=== PATIENT | male | born 1970 | race Caucasian/White ===

== ENCOUNTER → 2019-05-17 08:59 | Outpatient (CLI) | payer OTHER, SELFPAY ==
[2019-05-17 09:06] LABS: Bacteria Urine None Seen; RBC Urine None Seen (0-5/HPF); WBC Urine None Seen (0-5/HPF)
[2019-05-17 10:17] LABS: Hematocrit 45.4 % (41-53); Hemoglobin 15.6 g/dL (13.5-17.5); Mean Corpuscular HGB Conc 34.3 % (30-36); Mean Corpuscular Hemoglobin 30.9 PG (26-34); Mean Corpuscular Volume 90.2 fL (80-100); Platelet Count 170 X10^3/uL (150-400); Red Blood Cell Count 5.04 X10^6/uL (4.5-5.9); Red Cell Distribution Width 13.2 % (11.6-14.8); White Blood Cell Count 4.3 X10^3/uL (4.5-11.0)
[2019-05-17 10:22] LABS: Alanine Aminotransferase 18 IU/L (21-72); Albumin 4.6 g/dL (3.5-5.0); Albumin Globulin Ratio 1.7 (1.0-2.8); Alkaline Phosphatase 60 U/L (38-126); Aspartate Aminotransferase 41 IU/L (17-59); Bilirubin Total 0.9 mg/dL (0.2-1.3); Blood Urea Nitrogen 17 mg/dL (9-20); Calcium 9.7 mg/dL (8.4-10.2); Carbon Dioxide 27 mmol/L (22-32); Chloride 104 mmol/L (98-107); Cholesterol 221 mg/dL (140-199); Estimated Glomerular Filt Rate > 60.0 mL/min (>60); Globulin 2.7 g/dL (1.7-4.1); Glucose 91 mg/dL (70-100); HDL Cholesterol 54 mg/dL (40-60); HEMOLYSIS < 15 (0-50); LDL Cholesterol Calculated 155 mg/dL (<100); Potassium 4.2 mmol/L (3.4-5.1); Sodium 141 mmol/L (137-145); Total Protein 7.3 g/dL (6.3-8.2); Triglycerides 58 mg/dL (35-150)
[2019-05-17 11:27] LABS: Appearance Urine UA CLEAR; Bilirubin Urine UA NEGATIVE (NEGATIVE); Color Urine UA YELLOW; Glucose Urine UA NEGATIVE (Negative); Ketones Urine UA NEGATIVE (NEGATIVE); Leukocyte Esterase Urine UA NEGATIVE (NEGATIVE); Nitrite Urine UA NEGATIVE (Negative); Occult Blood Urine UA NEGATIVE (Negative); Protein Urine UA NEGATIVE (Negative); Urobilinogen Urine UA 0.2 E.U./dL (0.2)
[2019-05-17 12:19] LABS: Culture Indicated Urine Cult Not Indicated
== END ==
PROVIDERS: Visit Provider Nurse Practitioner Family
DX: Z00.00 Encounter for general adult medical examination without abnormal findings (principal); Z13.6 Encounter for screening for cardiovascular disorders
CPT/HCPCS: 36415; 80053; 80061; 81001; 85027

== ENCOUNTER 2019-08-16 07:42 | Day surgery (SDC) | payer OTHER, SELFPAY ==
[2019-08-16 08:05] VITALS: BMI 24.7
[2019-08-16 08:09] VITALS: BP 115/78; PULSE 58; RESP 20; TEMP 36.3; O2SAT 97
[2019-08-16] MEDS: SODIUM CHLORIDE 0.9% 1,000 ML 200 ML IV (08:20)
--- NOTE | 2019-08-16 09:03 | PM.HP.1 ---
History of Present Illness History of Present Illness Date Patient Seen: 08/16/19 Time Patient Seen: 09:03 Chief complaint: Colonoscopy [id number] Narrative: This is a 49-year-old man who is here for his 1st screening colonoscopy. He has no personal history of melena, abdominal pain, constipation, diarrhea, dark stool, or blood in the stool. He has no unexplained weight loss or other concerning symptoms. His father was diagnosed with colon cancer at age 77. But he has no primary relatives who have had colon cancer at any earlier age. Patient History Medical History Chicken pox (Resolved ~1977) Headache (Chronic ~1989) Migraines (Chronic ~1989) Ruptured tympanic membrane (Chronic) Tinnitus (Chronic) Surgical History Anesthesia (Resolved) History of ankle surgery (Resolved ~10/01/14) History of umbilical hernia repair (Resolved ~07/02/76) Status post correction of deviated nasal septum (Resolved ~01/30/86) Family History (Updated 06/17/19 @ 17:28 by Seble Salazar) Father Hyperlipidemia Grandfather Cancer Grandmother Parkinson's disease Grandfather Cancer Grandmother Cancer Social History household members: significant other Smoking Status: Never smoker second hand exposure: No alcohol intake: current (couple times a month) substance use type: marijuana (vape, edibles. 1x/week) Family & Social History Family History Father Hyperlipidemia Grandfather Cancer Grandmother Parkinson's disease Grandfather Cancer Grandmother Cancer Social History: household members significant other Tobacco & Substance use: Smoking Status Never smoker alcohol intake current Meds Home Medications and Allergies Home Medications Medication Instructions Recorded Confirmed Type Collagen Hydrolysate PO DAILY 05/15/19 05/15/19 History Quercetin 500 mg PO DAILY 05/15/19 05/15/19 History ascorbic acid (vitamin C) 1,000 mg 1 gram PO DAILY tab 05/15/19 08/16/19 History tablet calcium carbonate 500 mg calcium 500 mg PO 3XW cap 05/15/19 08/16/19 History (1,250 mg) capsule cholecalciferol (vitamin D3) 5,000 5,000 unit PO DAILY 05/15/19 08/16/19 History unit capsule ibuprofen 200 mg tablet 800 mg PO TID PRN tab 05/15/19 05/15/19 History magnesium 250 mg tablet 250 mg PO 3XW tab 05/15/19 05/15/19 History varicella-zoster [id number] (PF) 50 50 mcg IM ONCE #1 each 05/15/19 Rx mcg/0.5 mL IM susp, kit omega 0-nkk-tkl-fish oil [[place]-3] 1 cap PO DAILY 08/16/19 08/16/19 History vit A-vit [id number] [Zinc 15 mg PO 3XW 08/16/19 08/16/19 History (with A and C) Lozenges] Allergies Allergy/AdvReac Type Severity Reaction Status Date / Time aspartame Allergy Severe severe Verified 08/16/19 08:02 headaches hops Allergy Severe severe Verified 08/16/19 08:02 headaches Review of Systems Review of Systems Narrative: Patient has chronic headaches. Otherwise All systems reviewed and unremarkable except as noted in HPI. Exam Vital Signs (past 8 hours): - 08/16/19 08:09 Temperature 97.4 F L Pulse Rate 58 L Respiratory Rate 20 Blood Pressure 115/78 Pulse Oximetry 97 Oxygen Delivery Method Room Air Narrative Exam Narrative: GENERAL: Well groomed and cooperative. Appears stated age. Answers questions promptly and appropriately. Vital signs noted. HENT: Normocephalic, atraumatic. Hearing intact. Oral mucosa is pink and moist. EYES: Conjunctiva pink, sclera white, no periorbital swelling. CARDIOVASCULAR: Regular rate. No pedal edema. RESPIRATORY: Normal respiratory rate, breathing comfortably on room air. GASTROINTESTINAL: Abdomen soft and non-distended GENITALURINARY: No flank tenderness. MUSCULOSKELETAL: Normal gait and coordination. Equal tone and mass bilaterally. SKIN: Warm, dry, soft, appropriate color for ethnicity. No other lesions, rashes, or wounds. NEURO: Alert and Oriented X 3. Good coordination. No ataxia, or sensory deficits, or cognitive issues. PSYCH: Appropriate affect and mood. Assessment & Plan Assessment and plan (1) Colon cancer screening: Current visit: Yes Status: Acute Assessment & Plan narrative: This is a 49-year-old man here for his 1st screening colonoscopy. Risks and benefits of colonoscopy and possible polypectomy were discussed including risk of bleeding, or perforation. The patient desires to proceed with his colonoscopy procedure. Plan: Proceed to endoscopy for colonoscopy and possible polypectomy Quality VTE Deep Vein Thrombosis/Pulmonary Embolism Present on Admission: No
[2019-08-16] MEDS: MIDAZOLAM 5 MG/5 ML VIAL IV (09:28)
[2019-08-16] MEDS: fentaNYL 250 MCG/5 ML INJ IV (09:28)
--- NOTE | 2019-08-16 09:28 | PM.OP.ENDO ---
Operative Date/Time/Diagnoses Date of procedure: 08/16/19 Time of procedure: 09:28 Pre-op diagnosis: Average risk for colon cancer. Post-op diagnosis: same Procedure & Clinicians Study performed: Screening colonoscopy Same procedure as scheduled: Yes Indications: 49-year-old man at average risk for colon cancer. Surgeon: Berenice Gnozalez Procedure Notes SCOAP/Timeout: Performed Procedure in detail: Patient brought to the room and placed in left lateral decubitus position with all bony prominences padded. A time-out was performed and then the patient has been under sedation starting with 4 mg of Versed and 100 mg of fentanyl. Vitals were monitored throughout the procedure and remained stable. Once adequately sedated the procedure was begun a rectal exam was performed revealing no abnormalities. The colonoscope was then introduced to the rectum and advanced to the cecum in the usual fashion. The cecum was identified with the appendiceal orifice, mucosal try fold and the ileocecal valve. The scope was then retracted in the usual fashion rotating side to side and examining each mucosal fold. At the conclusion procedure retroflexion was performed and a small grade 1 internal hemorrhoids without stigmata of bleeding were seen. Following that the scope was withdrawn from the rectum the procedure was concluded the patient tolerated the procedure well was transferred to the PACU in stable condition. Scope withdrawal time: 8 minutes Sedation minutes: 17 Specimen(s): none sent Complications: none Impression: Normal colon. Grade 1 internal hemorrhoids without stigmata of bleeding. Post-procedure Recommendations: Colonscopy in 10 years Follow up: as needed Disposition: PACU
[2019-08-16 09:32] VITALS: BP 96/66; PULSE 66; RESP 11; TEMP 36.7; O2SAT 95
[2019-08-16 09:34] VITALS: BP 89/62; PULSE 64; RESP 96; O2SAT 12
[2019-08-16 09:39] VITALS: BP 90/63; PULSE 61; RESP 95; O2SAT 8
[2019-08-16 09:54] VITALS: BP 110/74; PULSE 64; RESP 97; O2SAT 12
[2019-08-16 10:07] VITALS: BP 103/72; PULSE 58; RESP 15; TEMP 36.4; O2SAT 99
== END 2019-08-16 10:19 | disposition home or self-care (01) ==
PROVIDERS: Family Provider Nurse Practitioner Family; PCP Nurse Practitioner Family; Visit Provider Surgery
PROC: 0DJD8ZZ Inspection of Lower Intestinal Tract, Via Natural or Artificial Opening Endoscopic (ICD-10-PCS; CPT 45378; principal; 2019-08-16 08:45)
DX: Z12.11 Encounter for screening for malignant neoplasm of colon (principal); K64.0 First degree hemorrhoids
CPT/HCPCS: 45378; 99152; J2250; J3010

== ENCOUNTER → 2019-09-18 10:27 | Outpatient (CLI) | payer OTHER, SELFPAY ==
[2019-09-18 11:28] LABS: Cholesterol 205 mg/dL (140-199); HDL Cholesterol 55 mg/dL (40-60); LDL Cholesterol Calculated 140 mg/dL (<100); Triglycerides 52 mg/dL (35-150)
== END ==
PROVIDERS: Family Provider Nurse Practitioner Family; PCP Nurse Practitioner Family; Visit Provider Nurse Practitioner Family
DX: E78.2 Mixed hyperlipidemia (principal)
CPT/HCPCS: 36415; 80061